=== PATIENT | male | born 1960 | race Caucasian/White ===

== ENCOUNTER 2020-07-11 17:25 | Emergency (ER) | payer OTHER ==
[2020-07-11 17:45] LABS: #Basophils 0.1 thou/uL (0.0-0.2); #Eosinphils 0.2 thou/uL (0.0-0.7); #Lymphocytes 2.8 thou/uL (1.20-3.40); #Monocytes 1.5 thou/uL (0.11-0.59); #Neutrophils 11.5 thou/uL (1.40-6.50); %Basophils 0.7 % (0.0-1.0); %Lymphocytes 17.3 % (21.0-51.0); %Monocytes 9.5 % (0.0-10.0); %Neutrophils 71.6 % (42.0-75.0); Hemoglobin 15.5 g/dL (14.0-18.0); Mean Corpuscular HGB CONC 32.1 g/dL (32.0-36.0); Mean Corpuscular Volume 90.4 fL (78.0-98.0); Mean Platelet Volume 9.4 fL (7.4-10.4); Platelet Count 274 thou/uL (130-400); Red Blood Cell (RBC) Count 5.36 mill/uL (4.70-6.10); White Blood Cell (WBC) Count 16.1 thou/uL (4.8-10.8)
[2020-07-11 18:02] LABS: ALT (SGPT) 25 U/L (8-55); AST (SGOT) 17 U/L (5-34); Albumin 4.6 g/dL (3.4-4.8); Alkaline Phosphatase 58 U/L (40-110); Anion Gap 23 mmol/L (10-20); BUN (Urea Nitrogen) 27 mg/dL (8.4-25.7); Bilirubin, Total 1.4 mg/dL (0.2-1.2); Calc. Creatinine Clearance 0 mL/min (70-130); Calcium 10.5 mg/dL (7.8-10.44); Carbon Dioxide 17 mmol/L (23-31); Chloride 104 mmol/L (98-107); Estimated GFR-MDRD 23; Glucose 116 mg/dL (80-115); Potassium 4.1 mmol/L (3.5-5.1); Protein, Total 7.6 g/dL (5.8-8.1); Sodium 140 mmol/L (136-145)
--- NOTE | 2020-07-11 20:06 | RAD ---
PORTABLE CHEST: Date: 07/11/2020 An AP portable film at 1746 hours shows a normal sized heart and clear lungs. No acute infiltrate or effusion seen. Minimal streaking in the right base medially is probably just a confluence of markings . IMPRESSION: No acute thoracic finding. POS: HOME
== END 2020-07-11 20:00 | disposition home or self-care (01) ==
LOC: BURERS 17:25
DX: T67.5XXA Heat exhaustion, unspecified, initial encounter (principal); E86.0 Dehydration; R29.700 NIHSS score 0
CPT/HCPCS: 71045; 80053; 83690; 84484; 85025; 85379; 93005; 94760

== ENCOUNTER 2020-11-15 13:31 | Emergency (ER) | payer OTHER ==
--- NOTE | 2020-11-15 17:23 | RAD ---
RIGHT CLAVICLE TWO VIEWS: 11/15/20 FINDINGS: No fracture or AC joint widening is seen. There is some arthritic change in the AC joint. There is no dislocation of the humeral head. The upper few ribs appear intact. Some degenerative changes are see n in the lower cervical spine. IMPRESSION: No acute bony findings. POS: HOME
== END 2020-11-15 14:24 | disposition home or self-care (01) ==
LOC: BURERS 13:31
DX: S40.011A Contusion of right shoulder, initial encounter (principal); E78.5 Hyperlipidemia, unspecified; I10 Essential (primary) hypertension; W17.89XA Other fall from one level to another, initial encounter